=== PATIENT | female | born 1970 | race Caucasian/White ===

== ENCOUNTER 2019-03-16 01:16 | Emergency (ER) | payer BC, OTHER ==
[~2019-03-16] VITALS: Ht 160 cm; Wt 45.4 kg
[2019-03-16 02:49] LABS: BASOPHILS % (AUTO) 0.8 % (0.0-2.0); EOSINOPHILS # (AUTO) 0.2 K/uL (0.0-0.7); EOSINOPHILS % (AUTO) 2.8 % (0.0-7.0); HEMATOCRIT 38.6 % (31.2-41.9); HEMOGLOBIN 13.2 g/dL (10.9-14.3); LYMPHOCYTES # (AUTO) 2.2 K/uL (20.0-40.0); LYMPHOCYTES % (AUTO) 40.6 % (20.5-51.5); MEAN CORPUSCULAR HEMOGLOBIN 29.9 uug (24.7-32.8); MEAN CORPUSCULAR HGB CONC 34 g/dL (32.3-35.6); MEAN CORPUSCULAR VOLUME 87.3 fL (75.5-95.3); MONOCYTES # (AUTO) 0.4 K/uL (2.0-10.0); MONOCYTES % (AUTO) 6.6 % (0.0-11.0); NEUTROPHILS # (AUTO) 2.6 K/uL (1.8-8.9); NEUTROPHILS % (AUTO) 49.2 % (38.5-71.5); PLATELET COUNT (AUTO) 268 K/uL (179-408); RED BLOOD CELL COUNT(AUTO) 4.42 MIL/uL (3.63-4.92); WHITE BLOOD COUNT (AUTO) 5.4 K/uL (3.8-11.8)
--- NOTE | 2019-03-16 03:00 | NUR ---
PATIENT ATE [facility]OSPITAL MEAL THAT WAS PROVIDED
--- NOTE | 2019-03-16 03:10 | NUR ---
PATIENT SLEEPING ON GURNY WITH NO DISTRESS NOTED
[2019-03-16 03:18] LABS: POTASSIUM 3.9 mmol/L (3.5-5.1)
[2019-03-16 03:23] LABS: BILIRUBIN,DIRECT 0.1 mg/dL (0.0-0.2); BILIRUBIN,TOTAL 0.3 mg/dL (0.2-1.0)
--- NOTE | 2019-03-16 03:45 | NUR ---
Patient given written and verbal discharge instructions. Patient verbalizes understanding of instructions. Patient is ambulatory with steady gait. Refuses offer of care home placement. Patient given list of available shelters in surrounding area.
[2019-03-16 03:47] VITALS: BP 138/88
== END 2019-03-16 03:49 | disposition home or self-care (01) ==
LOC: ER 01:20
DX: H57.89 Other specified disorders of eye and adnexa (principal); Z88.8 Allergy status to other drugs, medicaments and biological substances; Z59.0 Homelessness
CPT/HCPCS: 36415; 85025; 85730; A4663

== ENCOUNTER 2019-04-09 22:47 | Emergency (ER) | payer OTHER ==
[~2019-04-09] VITALS: Ht 157.5 cm; Wt 48.5 kg
--- NOTE | 2019-04-09 23:10 | NUR ---
Patient ambulated with stable gait. Speech is clear, speaks in complete sentences. A/Ox4. Patient came for c/o spilling hot jello on her left inner thigh. Respiratory even and unlabored, no cough no sob. No cardiovascular distress noted all pulses palpable. No GI/ distress noted. Patient in bed at lowest position, sr upx2, call light within reach. Fall precautions implemented per protocol.
--- NOTE | 2019-04-09 23:50 | NUR ---
Patient given written and verbal discharge instructions. Patient verbalizes understanding of instructions. Patient is ambulatory with steady gait. Refuses offer of alf placement. Patient given list of available shelters in surrounding area. Provided patient with food and drink.
[2019-04-10] MEDS ORDERED: NEOMY/BACITRA/POLYMYXIN B OINT UD PACKET TP ONE ×2 (00:22→00:30)
== END 2019-04-09 23:50 | disposition home or self-care (01) ==
LOC: ER 22:47
DX: T24.212A Burn of second degree of left thigh, initial encounter (principal); L03.116 Cellulitis of left lower limb; F17.210 Nicotine dependence, cigarettes, uncomplicated; Z59.0 Homelessness; Z88.8 Allergy status to other drugs, medicaments and biological substances; X12.XXXA Contact with other hot fluids, initial encounter; Y93.89 Activity, other specified; Y92.89 Other specified places as the place of occurrence of the external cause; Y99.8 Other external cause status
CPT/HCPCS: A4663

== ENCOUNTER 2019-09-11 09:54 | Emergency (ER) | payer OTHER ==
[~2019-09-11] VITALS: Ht 157.5 cm; Wt 46.3 kg
--- NOTE | 2019-09-11 10:36 | NUR ---
assissted md with examining the pt.
[2019-09-11] MEDS ORDERED: LIDOCAINE HCL 1% 20 ML VIAL IJ ONE (10:45)
--- NOTE | 2019-09-11 12:37 | NUR ---
Patient given written and verbal discharge instructions. Patient verbalizes understanding of instructions. Patient is ambulatory with steady gait. Refuses offer of [facility] placement,because pt has a dog and shelters does not allow animals. Patient given list of available resources in surrounding area.
[2019-09-11 13:04] VITALS: BP 149/89
== END 2019-09-11 13:05 | disposition home or self-care (01) ==
LOC: ER 09:54
DX: K64.5 Perianal venous thrombosis (principal); F17.210 Nicotine dependence, cigarettes, uncomplicated; F41.9 Anxiety disorder, unspecified; Z88.8 Allergy status to other drugs, medicaments and biological substances
CPT/HCPCS: 46083; 99284; J3490; A4663

== ENCOUNTER 2019-10-12 20:40 | Emergency (ER) | payer OTHER ==
[~2019-10-12] VITALS: Ht 160 cm; Wt 47.6 kg
[2019-10-12] MEDS ORDERED: ASPIRIN 81 MG TAB.CHEW PO ONE (21:45)
[2019-10-12 21:49] LABS: BASOPHILS # (AUTO) 0.1 K/uL (0.0-8.0); BASOPHILS % (AUTO) 0.7 % (0.0-2.0); EOSINOPHILS # (AUTO) 0.1 K/uL (0.0-0.7); EOSINOPHILS % (AUTO) 0.9 % (0.0-7.0); HEMATOCRIT 36.6 % (31.2-41.9); HEMOGLOBIN 12.5 g/dL (10.9-14.3); LYMPHOCYTES # (AUTO) 2.4 K/uL (20.0-40.0); LYMPHOCYTES % (AUTO) 28.3 % (20.5-51.5); MEAN CORPUSCULAR HEMOGLOBIN 29.6 uug (24.7-32.8); MEAN CORPUSCULAR HGB CONC 34 g/dL (32.3-35.6); MEAN CORPUSCULAR VOLUME 86.9 fL (75.5-95.3); MONOCYTES # (AUTO) 0.7 K/uL (2.0-10.0); MONOCYTES % (AUTO) 7.8 % (0.0-11.0); NEUTROPHILS # (AUTO) 5.4 K/uL (1.8-8.9); NEUTROPHILS % (AUTO) 62.3 % (38.5-71.5); PLATELET COUNT (AUTO) 276 K/uL (179-408); RED BLOOD CELL COUNT(AUTO) 4.21 MIL/uL (3.63-4.92); WHITE BLOOD COUNT (AUTO) 8.6 K/uL (3.8-11.8)
[2019-10-12] MEDS ORDERED: ASPIRIN 81 MG TAB.CHEW ONE (21:49)
--- NOTE | 2019-10-12 21:55 | NUR ---
CONVEYOR SYSTEM OPERATOR AT BEDSIDE
--- NOTE | 2019-10-12 21:55 | NUR ---
HOTEL SERVER AT BEDSIDE
[2019-10-12 21:58] LABS: POTASSIUM 4.1 mmol/L (3.5-5.1)
--- NOTE | 2019-10-12 22:03 | NUR ---
PT ABLE TO TOLERATE PO MEDS
[2019-10-12 22:10] LABS: BILIRUBIN,DIRECT 0.1 mg/dL (0.0-0.2); BILIRUBIN,TOTAL 0.5 mg/dL (0.2-1.0); TOTAL PROTEIN, SERUM 7.7 g/dL (6.4-8.2)
[2019-10-12] MEDS ORDERED: IV NORMAL SALINE 1000 ML BAG IV ONE (22:15)
--- NOTE | 2019-10-13 00:11 | NUR ---
PT ASLEEP BUT EASILY ROUSED. MONITORED ACCORDINGLY IV SALINE LOCK G20 TO DORSAL L HAND
--- NOTE | 2019-10-13 01:50 | NUR ---
Patient discharged to home in stable conditon. Written and verbal after care instructions given. Patient verbalizes understanding of instructions. ambulatory w/ stable gait belongings w/ pt IV SALINE LOCK D/C, DRESSED
[2019-10-13 02:00] VITALS: BP 135/89
== END 2019-10-13 02:00 | disposition home or self-care (01) ==
LOC: ER 20:40
DX: R07.9 Chest pain, unspecified (principal); R45.0 Nervousness; F17.210 Nicotine dependence, cigarettes, uncomplicated; F41.9 Anxiety disorder, unspecified; Z71.6 Tobacco abuse counseling; Z59.0 Homelessness; Z88.8 Allergy status to other drugs, medicaments and biological substances
CPT/HCPCS: 36415; 70030-TC; 71045; 85025; 93005; A4663; J7030

== ENCOUNTER 2021-01-11 23:40 | Emergency (ER) | payer OTHER ==
[~2021-01-11] VITALS: Ht 160 cm; Wt 51.4 kg
--- NOTE | 2021-01-11 23:56 | NUR ---
Dr. Quintero at bedside for MSE
[2021-01-12] MEDS ORDERED: HYDROCODONE/APAP 10-325 MG TABLET PO ONE
--- NOTE | 2021-01-12 00:02 | NUR ---
50 y/o female presenting for Right Hip Pain. Neurological patient seems not all together. She is A&Ox4. No SI/HI. No chest pain, no palpitations, NSR on monitor, no diaphoresis, no chills. No SOB, saturations >94% on Room Air. No dyspnea. GI/: No reported issues. No hematuria. No N/V/D. Patient ambulated into the ER fine and was able to carry a variety of different bags and belongings with her including a lamp. Laying in bed - appearing quite comfortable. Addendum: 01/12/21 at 0011 by KMORADI *Neurologically - unkept & dishevled
--- NOTE | 2021-01-12 00:02 | NUR ---
Patient refused [facility] [phone] - states "it hurts my stomach"
[2021-01-12] MEDS ORDERED: HYDROCODONE/APAP 10-325 MG TABLET ONE (00:04)
[2021-01-12 00:27] VITALS: BP 122/75
--- NOTE | 2021-01-12 00:38 | NUR ---
Patient discharged to home in stable condition. Written and verbal after care instructions given. Patient verbalizes understanding of instructions. Stressed follow up or return to ER for worsening s/s. Belongings with patient. Educated on all pertinent information regarding medications prescribed. VSS. Steady gait. Homeless packet included. Education regarding resources provided.
== END 2021-01-12 00:39 | disposition home or self-care (01) ==
LOC: ER 23:42
DX: S76.811A Strain of other specified muscles, fascia and tendons at thigh level, right thigh, initial encounter (principal); X58.XXXA Exposure to other specified factors, initial encounter; Y92.89 Other specified places as the place of occurrence of the external cause; F17.210 Nicotine dependence, cigarettes, uncomplicated
CPT/HCPCS: 72170; A4663

== ENCOUNTER 2021-10-22 04:15 | Emergency (ER) | payer OTHER ==
[~2021-10-22] VITALS: Ht 157.5 cm; Wt 52.4 kg
[2021-10-22] MEDS ORDERED: SULF1TAB48 PO (04:55)
[2021-10-22] MEDS ORDERED: NEOMY/BACITRA/POLYMYXIN B OINT UD PACKET TP ONE ×2 (05:00→05:03)
--- NOTE | 2021-10-22 05:01 | NUR ---
Patient given written and verbal discharge instructions. Patient verbalizes understanding of instructions. Patient is ambulatory with steady gait. Refuses offer of skilled nursing placement. Patient given list of available shelters in surrounding area. Refused to sign homeless waiver. All belongings returned to patient prior to departure.
[2021-10-22 05:03] VITALS: BP 120/89
== END 2021-10-22 05:04 | disposition home or self-care (01) ==
LOC: ER 04:22
DX: L03.032 Cellulitis of left toe (principal); F17.210 Nicotine dependence, cigarettes, uncomplicated; Z59.02 Unsheltered homelessness
CPT/HCPCS: A4663

== ENCOUNTER 2022-06-18 00:13 | Emergency (ER) | payer OTHER ==
[~2022-06-18] VITALS: Ht 170.2 cm; Wt 53.1 kg
[~2022-06-18 00:13] MED LIST: SULF1TAB48 PO
--- NOTE | 2022-06-18 01:50 | NUR ---
After being triaged, patient was placed back in the waiting room due to no beds available in the ER.
--- NOTE | 2022-06-18 03:30 | NUR ---
Patient was called for re check of blood pressure but patient was not present in the waiting room.
--- NOTE | 2022-06-18 04:00 | NUR ---
Patient was called to be placed in hallway in the ER but patient was not present. PATIENT WAS TRIAGED BUT WAS NOT SEEN BY ERMD.
== END 2022-06-18 04:00 | disposition left against medical advice (07) ==
LOC: ER 00:31
DX: Z53.21 Procedure and treatment not carried out due to patient leaving prior to being seen by health care provider (principal)
CPT/HCPCS: A4663